=== PATIENT | male | born 2000 | race Caucasian/White ===

== ENCOUNTER → 2022-06-23 | Outpatient (CLI) | payer OTHER, SELFPAY ==
[2022-06-23 12:18] LABS: Absolute Lymphocyte Count 1.56 X10^3/uL (0.83-4.51); Absolute Neutrophil Count 4.3 X10^3/uL (2.0-7.7); Basophil# 0.04 X10^3/uL; Basophil% 0.6 % (0-1); Eosinophil# 0.18 X10^3/uL; Eosinophils% 2.7 % (0-5); Hematocrit 48.6 % (40-54); Hemoglobin 15.9 g/dL (13.0-16.5); Lymphocyte # 1.56 X10^3/ul (0.83-4.51); Lymphocyte % 23.4 % (19-41); Mean Corp Hgb Conc 32.7 g/dL (32-36); Mean Corpuscular Hgb 28.5 pg (27.0-32.0); Mean Corpuscular Volume 87.1 fL (80-94); Mean Platelet Vol. 10.8 fl (6.2-12.0); Monocyte# 0.52 X10^3/uL; Monocyte% 7.8 % (0-10); NRBC Flagged by Analyzer 0 % (0-5); Neutrophil # 4.28 X10^3/uL (2.7-7.7); Neutrophil % 64.2 % (47-70); Platelet Count 295 K/mm3 (150-450); RBC Distribution Width CV 12.4 % (11.6-14.6); RBC Distribution Width SD 39.4 fl (35.1-43.9); Red Blood Count 5.58 M/mm3 (4.6-6.2); White Blood Count 6.7 K/mm3 (4.4-11.0)
[2022-06-23 12:59] LABS: Vitamin B12 784 pg/mL (211-911)
[2022-06-23 13:14] LABS: AST(SGOT) 25 U/L (15-37); Alanine Aminotransfer ALT/SGPT 35 U/L (16-61); Albumin, Serum 4.2 g/dL (3.2-5.0); Alkaline Phosphatase 91 U/L (45-117); Anion Gap 7 (5-15); BUN 17 mg/dL (7-18); BUN/Creat Ratio 16.5 RATIO (10-20); Calcium,Total 9.6 mg/dL (8.5-10.1); Chloride 105 mmol/L (98-107); Creatinine, Serum 1.03 mg/dL (0.70-1.30); EST Glomerular Filtration Rate 96 mL/min (>60); Est Glom Filt Rate - Afr Amer 116 mL/min (>60); Ferritin 73 ng/mL (26-388); Glucose 94 mg/dL (74-106); Potassium 4.3 mmol/L (3.5-5.1); Protein, Total 8.2 g/dL (6.4-8.2); Sodium Level 140 mmol/L (136-145); Thyroid Stim Hormone (TSH) 1.72 uIU/mL (0.358-3.74)
[2022-06-23 13:28] LABS: Hemoglobin A1c 5.2 % (3.8-5.6)
== END | disposition home or self-care (01) ==
LOC: MFPLAB 10:13
PROVIDERS: PCP Family Medicine; Referring Provider Family Medicine; Visit Provider Family Medicine
DX: R53.83 Other fatigue (principal)
CPT/HCPCS: 36415; 80053; 82306; 82607; 82728; 83036; 84443; 85025

== ENCOUNTER 2023-08-22 22:36 | Emergency (ER) | payer SELFPAY ==
[2023-08-22 22:36] VITALS: BP 160/115; PULSE 96; RESP 18; TEMP 36.6; O2SAT 98; BMI 25.9
--- NOTE | 2023-08-22 23:03 | CT_ITS ---
EXAM: CT CERVICAL SPINE WITHOUT INTRAVENOUS CONTRAST CLINICAL INDICATION: fall TECHNIQUE: Helically acquired images were obtained of the cervical spine without intravenous contrast. 2D reformatted images were reviewed. Some images repeated due to patient motion. This CT exam was performed using one or more of the following dose reduction techniques: automated exposure control, adjustment of the mA and/or kV according to patient size, and/or use of iterative reconstruction technique. RADIATION DOSE: CTDIvol = 16.84 mGy, DLP = 332.32 mGy-cm COMPARISON: No relevant prior studies available. FINDINGS: VERTEBRAE: Unremarkable. No fracture. No traumatic subluxation. No discrete lytic or blastic abnormality. Normal alignment. Normal craniocervical junction and cervicothoracic junction. DISCS/SPINAL CANAL/NEURAL FORAMINA: Unremarkable. Disc heights are preserved. No critical stenosis. SOFT TISSUES: Unremarkable. No prevertebral soft tissue swelling. LYMPH NODES: Unremarkable. No cervical adenopathy. LUNG APICES: Unremarkable as visualized. Clear. CT/Spine Cervical without Contras IMPRESSION: No evidence of acute cervical spinal fracture or spondylolisthesis. Electronically Signed: Panda Henriquez MD at 23:52 EDT ,
--- NOTE | 2023-08-22 23:03 | CT_ITS ---
EXAM: CT HEAD WITHOUT INTRAVENOUS CONTRAST CLINICAL INDICATION: head injury TECHNIQUE: Multiple axial images were obtained of the head without intravenous contrast. This CT exam was performed using one or more of the following dose reduction techniques: automated exposure control, adjustment of the mA and/or kV according to patient size, and/or use of iterative reconstruction technique. RADIATION DOSE: CTDIvol = 44.99 mGy, DLP = 897.35 mGy-cm COMPARISON: No relevant prior studies available. FINDINGS: BRAIN AND EXTRA-AXIAL SPACES: Unremarkable. No intra- or extra-axial hemorrhage. No evidence of acute infarct. No intracranial mass or mass effect. There is preservation of the persaud/white matter interface. Posterior fossa structures are unremarkable. Ventricles are appropriate for age. No hydrocephalus. Basal cisterns are patent. BONES/JOINTS: Unremarkable. No discrete lytic or blastic abnormalities. SINUSES: Unremarkable as visualized. Clear. MASTOID AIR CELLS: Unremarkable. Clear. ORBITS: Visualized globes, extraocular muscles, optic nerves and retrobulbar fat appear unremarkable. CT/Brain/Head without Contrast IMPRESSION: Negative head/brain CT without intravenous contrast. Electronically Signed: Panda Henriquez MD at 23:52 EDT ,
[2023-08-23 00:36] VITALS: BP 110/59; PULSE 75; RESP 16; TEMP 36.1; O2SAT 97
[2023-08-23 02:55] VITALS: BP 131/82; PULSE 87; RESP 16; O2SAT 92
--- NOTE | 2023-08-23 03:34 | EDS_ITS ---
HPI History of Present Illness Chief Complaint: Overdose Informant: patient Narrative Narrative: Patient is a 23-year-old male who reportedly ate shrooms around 6 PM. Since that time he has been in and out of consciousness and had an unknown or unwitnessed fall where he sustained a laceration to his head. Secondary to the trauma and the fact he has drained into his mental status from apparent drug ingestion he was brought in for evaluation [facility] Medical History (Updated 08/23/23 @ 03:[address] Julián Pedraza, DO) Unspecified mood [affective] disorder ADHD Social anxiety disorder Bipolar 2 disorder Gastrointestinal problem Home Medications ?Medication ?Instructions ?Recorded ?Last Taken ?Type atomoxetine 40 mg capsule 40 mg PO DAILY #30 caps 12/22/22 Unknown Rx Allergy/AdvReac Type Severity Reaction Status Date / Time clindamycin Allergy Severe Other Verified 12/06/22 12:43 Social History (System 12/06/22 @ 12:43 by Carrie Drummond) Smoking Status: Never smoker alcohol intake: never substance use type: does not use ROS ROS ED ROS Narrative Please note review of systems may be unreliable secondary to patient's drug use Constitutional Constitutional ED: Denies chills or fever(s) Eyes Eyes: Denies change in vision ENT ENT ED: Denies sore throat Cardiovascular Cardiovascular: Denies chest pain or racing heartbeat Respiratory/Chest Respiratory/Chest: Denies cough or dyspnea Gastrointestinal Gastrointestinal: Denies abdominal pain, diarrhea, nausea or vomiting Genitourinary Genitourinary ED: Denies dysuria Musculoskeletal Musculoskeletal: Denies back pain, myalgias or neck pain Integumentary Denies rash Neurologic Neurologic: Denies headache(s), paresthesias or weakness Psychiatric Psychiatric: Denies suicidal ideation or suicidal thoughts Hematologic/Lymphatic Hematologic/Lymphatic: Denies easy bleeding or easy bruising EXAM Physical Exam Const Vital Signs: 08/22/23 22:36 08/23/23 00:36 08/23/23 00:36 Temperature 97.8 F 97.0 F L Temperature Source Oral Pulse Rate 96 75 75 Respiratory Rate 18 16 16 Blood Pressure 160/115 H 110/59 L 110/59 L Blood Pressure Mean 130 76 76 Pulse Ox 98 97 97 Oxygen Delivery Method Room Air 08/23/23 02:55 Temperature Temperature Source Pulse Rate 87 Respiratory Rate 16 Blood Pressure 131/82 H Blood Pressure Mean 98 Pulse Ox 92 Oxygen Delivery Method Room Air Positive well nourished and well developed General Appearance ED: well developed; Negative for pallor HEENT Reports moist mucous membranes HEENT Narrative: No tongue or lip biting noted No tongue or lip swelling present; no airway edema or compromise No signs of infection noted in the posterior pharynx Patient has a superficial 1.5 cm dermal layer deep linear laceration to the left occipital portion of the scalp without active bleeding or foreign body. No signs of depressed or basilar skull fracture Eyes EOMs intact bilaterally Eyes Narrative: Pupils are dilated and sluggish to respond to light Neck supple Neck Narrative: No bony deformity or step-off of the cervical spine no midline tenderness to palpation Chest Wall palpation of chest normal Chest Narrative: No bony deformity or crepitance noted Resp normal respiratory effort and clear to auscultation bilaterally Cardio regular rate and regular rhythm GI normal to inspection, nondistended, normoactive bowel sounds, non-tender and non-distended GI Narrative: No voluntary guarding or rigidity No pulsatile mass or fluid wave Auscultation: normoactive bowel sounds Palpation: soft Back/Spine Back/Spine Narrative: No bony deformity or step-off of the thoracic or lumbar spine no midline tenderness to palpation Extremity normal to inspection Extremity Narrative: Pelvis is stable there is no shortening or external rotation of either lower extremity Patient able to move all extremities without difficulty Neuro CN's II-XII intact bilaterally Neuro Narrative: Patient is awake and alert to person and place but disoriented to time upon evaluation. However cranial nerves II through XII are grossly intact without focal neurologic deficits Sensorium / Orientation: alert Motor Exam: strength 5/5 throughout Psych Psych Narrative: Patient has a flat affect Skin skin turgor normal Skin Narrative: Superficial laceration to the occipital portion of the scalp as documented above General Skin Exam: Negative for jaundice or pallor MDM MDM MDM Narrative Medical decision making narrative: Patient arrived to the ER hypertensive but otherwise with stable vitals. He admitted to [facility]. This is caused derangement to his mental status and he did sustain a laceration to his occipital portion of his scalp/skull on physical exam. With the injury to the skull there is concern for potential skull fracture versus epidural or subdural hematoma or potential cervical spine injury. He did not have pain on palpation along the thoracic or lumbar spine there are no signs of bony injury and he is protecting his airway and he states that he simply did the illicit drugs to get high and not an attempt to hurt himself. Therefore do not feel there is need for further imaging studies or a psychiatric workup. Patient had CTs of the head and cervical spine obtained which revealed no acute traumatic findings. He was watched in the ER until he became sober. The laceration is superficial without active bleeding or foreign body and therefore there is no need for prophylactic antibiotics or closure. At this time as patient's vitals are stable his mental status is normalized and his imaging studies showed no signs of underlying trauma he is otherwise safe for discharge History & Record Review Discussion w/independent historian: Patient Radiography Diagnostic Testing: Clinical Impression(s) from Imaging Studies Brain CT 08/22/23 23:03 IMPRESSION: Negative head/brain CT without intravenous contrast. Electronically Signed: Panad Henriquez MD at 23:52 EDT Reading Location ID and State: [facility] / [place] Tel , Service support , Cervical Spine CT 08/22/23 23:03 IMPRESSION: No evidence of acute cervical spinal fracture or spondylolisthesis. Electronically Signed: Panda Henriquez MD at 23:52 EDT Reading Location ID and State: [facility] / [place] Tel , Service support , Discharge Plan Triage Chief Complaint: Overdose ED Provider: Julián Pedraza Dx/Rx/DC Orders Clinical Impression: Illicit drug use, Closed head injury, Laceration of scalp, ADHD Instructions: ED Head Injury (Adult), ED Laceration Superficial No Stitch Prescriptions: No Action atomoxetine 40 mg capsule 40 mg PO DAILY Qty: 30 2RF Primary Care Provider: Care Physician,No Primary Referrals: Gabino Vaughn MD [Med Staff - Active Staff] - Care Physician,No Primary [Primary Care Provider] - Activity Restrictions/Additional Instructions: Your CT scan showed no signs of underlying trauma and the laceration to your head/scalp is superficial and will close on its own without any type of need for sutures or Dermabond. Please continue to wash your hair with soap and water to prevent infection and return to the ER should you have any further concerns Print Language: Yoruba Disposition Disposition: Home, Self Care
== END 2023-08-23 03:44 | disposition home or self-care (01) ==
PROVIDERS: Emergency Provider Emergency Medicine; Visit Provider Emergency Medicine
DX: S01.01XA Laceration without foreign body of scalp, initial encounter (principal); F90.9 Attention-deficit hyperactivity disorder, unspecified type; W19.XXXA Unspecified fall, initial encounter; F19.90 Other psychoactive substance use, unspecified, uncomplicated
CPT/HCPCS: 70450; 72125; 99282